=== PATIENT | male | born 1990 | race Caucasian/White ===

== ENCOUNTER → 2016-06-21 | Outpatient (CLI) | payer MEDICAID ==
[~2016-06-21] MED LIST: ALPR0.5T7 PO; BISA10SU12 PR; FENT1PAT8 TD; FLUO20CA25 PO; GABA600T2 PO; HYDR-3812 PO; MENT71OI TOP
--- OUTSIDE RECORDS SUMMARY | 2016-06-21 15:51 | XMS REPORT | Continuity of Care Document ---
Author Author [facility] Organization [facility] Address Unknown Phone Unavailable Support Name Relationship Address Phone MOLLY GARCÍA MD Caregiver [address] [facility] [place] [address] [place] [address] Insurance Providers Payer Name Policy Number Subscriber Name Relationship Self Pay Brayan Ross 18 Self / Same As Patient Advance Directives Directive Response Recorded Date/Time Advance Directives Yes 02/18/16 2:32pm Health Care Power of Family And Consumer Education Teacher Yes 02/18/16 2:32pm Resuscitation Status Full Code [...] 6.00 inches 02/18/2016 2:23pm Height (Calculated Centimeters) 167.399073 cm 02/18/2016 2:23pm Weight (Pounds) 193 pounds 02/18/2016 2:23pm Weight (Ounces) 3.0 oz 02/18/2016 2:23pm Weight (Calculated Grams) 58039.38 gm 02/18/2016 2:23pm Weight (Calculated Kilograms) 87.640752 kilograms 02/18/2016 2:23pm Calculated BMI 31.2 02/18/2016 2:23pm Results No known relevant diagnostic tests, laboratory data and/or discharge summary. Procedures No known history of procedures. Encounters Encounter Location Arrival/Admit Date Discharge/Depart Date Attending Provider Discharged Inpatient [facility] 02/18/16 12:35pm 2:13pm MOLLY GARCÍA MD Recent Diagnosis Quadriplegia, C5-C7, incomplete
[2016-06-21 16:42] LABS: BASOPHILS % (AUTO) 0 % (0-10); EOSINOPHILS # (AUTO) 0.2 10^3/uL (0.0-0.3); EOSINOPHILS % (AUTO) 3 % (0-10); LYMPHOCYTES # (AUTO) 3.1 X 10^3 (1.0-4.0); LYMPHOCYTES % (AUTO) 39 % (12-44); MEAN CORPUSCULAR HEMOGLOBIN 30 PG (25-34); MEAN CORPUSCULAR HGB CONC 35 G/DL (32-36); MEAN CORPUSCULAR VOLUME 85 FL (80-99); MEAN PLATELET VOLUME 9.8 FL (7.4-10.4); MONOCYTES # (AUTO) 0.7 X 10^3 (0.0-1.0); MONOCYTES % (AUTO) 9 % (0-12); NEUTROPHILS # (AUTO) 3.9 X 10^3 (1.8-7.8); NEUTROPHILS % (AUTO) 49 % (42-75); PLATELET COUNT 264 10^3/uL (130-400); RED BLOOD COUNT 4.85 10^6/uL (4.35-5.85); RED CELL DISTRIBUTION WIDTH 12.7 % (10.0-14.5)
[2016-06-21 17:12] LABS: ALANINE AMINOTRANSFERASE 29 U/L (0-55); ANION GAP 12 MMOL/L (5-14); ASPARTATE AMINO TRANSFERASE 22 U/L (5-34); BILIRUBIN,TOTAL 0.5 MG/DL (0.1-1.0); BLOOD UREA NITROGEN 12 MG/DL (7-18); BUN/CREATININE RATIO 20; CALCIUM 9.8 MG/DL (8.5-10.1); CARBON DIOXIDE 21 MMOL/L (21-32); CHLORIDE 104 MMOL/L (98-107); CREATININE SERUM 0.59 MG/DL (0.60-1.30); GFR ESTIMATED > 60; GLUCOSE 83 MG/DL (70-105); POTASSIUM 3.8 MMOL/L (3.6-5.0); SODIUM 137 MMOL/L (135-145); TOTAL PROTEIN 7.5 G/DL (6.4-8.2)
[2016-06-21 17:20] LABS: ERYTHROCYTE SEDIMENTATION RATE 19 MM/HR (0-15)
--- NOTE | 2016-06-21 19:06 | Diagnostic Imaging Report ---
INDICATION: Right-sided ischial ulcers. FINDINGS: No bony destruction or osteolytic process is identified. No fracture or dislocation. Lateral radiograph revealed no appreciable sacrococcygeal deformity. No bony destruction. IMPRESSION: No osseous abnormality radiographically apparent. If a more sensitive evaluation of the osseous structures to exclude infection is needed, consider MRI or bone scan, again radiographs were unremarkable at this time. Dictated by: Dictated on workstation # [id number]
== END ==
LOC: RAD 15:46
PROVIDERS: ATTEND Surgery
DX: L89.310 Pressure ulcer of right buttock, unstageable (principal); G82.53 Quadriplegia, C5-C7 complete; R15.9 Full incontinence of feces; N39.42 Incontinence without sensory awareness
CPT/HCPCS: 36415; 72170; 80053; 85025; 85652

== ENCOUNTER 2016-07-23 10:00 | Outpatient (RCR) | payer MEDICAID ==
--- OUTSIDE RECORDS SUMMARY | 2016-05-05 10:22 | XMS REPORT | Continuity of Care Document ---
Author Author [facility] Organization [facility] Address Unknown Phone Unavailable Support Name Relationship Address Phone MOLLY GARCÍA MD Caregiver [address] [place] [address] [place] [address] Insurance Providers Payer Name Policy Number Subscriber Name Relationship Self Pay Brayan Ross 18 Self / Same As Patient Advance Directives Directive Response Recorded Date/Time Advance Directives Yes 02/18/16 2:32pm Health Care Power of Advertising Dispatch Clerks Supervisor Yes 02/18/16 2:32pm Resuscitation Status Full Code 02/18/16 2:32pm Chief Complaint and Reason for Visit Chief Complaint PARAPLEGIC,SPINAL CORD Reason for Visit Quadriplegia, C5-C7, incomplete Problems Active Problems Medical Problem Onset Date Status Quadriplegia, C5-C7, incomplete Unknown Acute Medications No medication information available. Social History Social History Problem Response Recorded Date/Time Recent Foreign Travel No 02/18/2016 2:06pm Recent Infectious Disease Exposure No 02/18/2016 2:06pm Hospital Discharge Instructions No hospital discharge instructions. Plan of Care Discharge Date 02/18/16 2:13pm Disposition 62 DISC/XFER TO IRF Prescriptions See Medication Section Functional Status No functional status results. Allergies, Adverse Reactions, Alerts No known allergies. Immunizations No immunization records. Vital Signs Acute Vital Signs Vital Response Date/Time Height (Feet) 5 feet 02/18/2016 2:23pm Height (Inches) 6.00 inches 02/18/2016 2:23pm Height (Calculated Centimeters) 167.664375 cm 02/18/2016 2:23pm Weight (Pounds) 193 pounds 02/18/2016 2:23pm Weight (Ounces) 3.0 oz 02/18/2016 2:23pm Weight (Calculated Grams) 12331.38 gm 02/18/2016 2:23pm Weight (Calculated Kilograms) 87.436191 kilograms 02/18/2016 2:23pm Calculated BMI 31.2 02/18/2016 2:23pm Results No known relevant diagnostic tests, laboratory data and/or discharge summary. Procedures No known history of procedures. Encounters Encounter Location Arrival/Admit Date Discharge/Depart Date Attending Provider Discharged Inpatient [facility] 02/18/16 12:35pm 2:13pm MOLLY GARCÍA MD Recent Diagnosis Quadriplegia, C5-C7, incomplete
== END 2016-08-03 | disposition home or self-care (01) ==
PROVIDERS: ATTEND Nurse Practitioner Family
DX: M54.2 Cervicalgia (principal); G82.21 Paraplegia, complete

== ENCOUNTER → 2016-07-23 | Outpatient (CLI) | payer MEDICAID ==
[~2016-07-23] VITALS: Ht 167.6 cm; Wt 89.7 kg
--- NOTE | 2016-07-23 13:53 | Diagnostic Imaging Report ---
INDICATION: PICC line placement. FINDINGS: A single view of the chest demonstrates a right entering PICC line with the tip of the catheter in the azygos vein. Recommend withdrawing 1.5 cm. No pneumothorax. Scarring is seen in the bases. IMPRESSION: The PICC line tip is in the azygos. The report was called to Stefanie. Dictated by: Dictated on workstation # [id number]
[2016-07-23 14:49] VITALS: BP 0/0
== END ==
LOC: SDC 12:23
PROVIDERS: ATTEND Surgery
DX: Z45.2 Encounter for adjustment and management of vascular access device (principal)
CPT/HCPCS: 36569; 71010; 76937

== ENCOUNTER → 2016-07-29 | Outpatient (CLI) | payer MEDICAID ==
[~2016-07-29] VITALS: Ht 167.6 cm; Wt 89.7 kg
[~2016-07-29] MED LIST changes: +GENTAMICIN IV SCH; +NS IV SCH
[2016-07-29 11:40] VITALS: BP 121/61
== END ==
LOC: SDC 09:13
PROVIDERS: ATTEND Surgery
DX: L89.314 Pressure ulcer of right buttock, stage 4 (principal); G82.53 Quadriplegia, C5-C7 complete; R15.9 Full incontinence of feces; N39.42 Incontinence without sensory awareness
CPT/HCPCS: 96365

== ENCOUNTER → 2016-08-09 | Outpatient (CLI) | payer MEDICAID ==
[~2016-08-09] MED LIST changes: -GENTAMICIN IV SCH; -NS IV SCH
== END ==
LOC: HH 14:19
PROVIDERS: ATTEND Surgery
DX: L89.314 Pressure ulcer of right buttock, stage 4 (principal)
CPT/HCPCS: 80170

== ENCOUNTER 2016-09-17 11:23 | Outpatient (RCR) | payer MEDICAID | END 2016-09-19 | disposition home or self-care (01) | LOC: WOUNDCARE 11:23 | PROVIDERS: ATTEND Surgery | DX: L89.314 Pressure ulcer of right buttock, stage 4 (principal); G82.53 Quadriplegia, C5-C7 complete; R15.9 Full incontinence of feces; N39.42 Incontinence without sensory awareness | CPT/HCPCS: 11042; 11043; 87070; 87075; 87077; 87186; 87205; 97605 ==

== ENCOUNTER 2016-11-10 14:30 | Outpatient (RCR) | payer MEDICAID ==
[2016-09-24 12:45] VITALS: BP 130/96
[~2016-11-10] VITALS: Ht 167.6 cm; Wt 89.7 kg
== END 2016-11-22 16:00 | disposition home or self-care (01) ==
LOC: WOUNDCARE 14:30
PROVIDERS: ATTEND Surgery
DX: L89.310 Pressure ulcer of right buttock, unstageable (principal); G82.53 Quadriplegia, C5-C7 complete; R15.9 Full incontinence of feces; N39.42 Incontinence without sensory awareness
CPT/HCPCS: 11042; 87070; 87075; 87077; 87186; 87205

== ENCOUNTER → 2016-11-26 | Outpatient (CLI) | payer MEDICAID | LOC: WOUNDCARE 11:23 | PROVIDERS: ATTEND Surgery | DX: L89.314 Pressure ulcer of right buttock, stage 4 (principal); G82.53 Quadriplegia, C5-C7 complete; R15.9 Full incontinence of feces; N39.42 Incontinence without sensory awareness | CPT/HCPCS: 11042 ==

== ENCOUNTER → 2016-12-22 | Outpatient (CLI) | payer MEDICAID | LOC: WOUNDCARE 14:49 | PROVIDERS: ATTEND Surgery | DX: L89.314 Pressure ulcer of right buttock, stage 4 (principal); G82.53 Quadriplegia, C5-C7 complete; R15.9 Full incontinence of feces; N39.42 Incontinence without sensory awareness | CPT/HCPCS: 11042; 97605 ==

== ENCOUNTER → 2016-12-31 | Outpatient (CLI) | payer MEDICAID | LOC: WOUNDCARE 11:23 | PROVIDERS: ATTEND Surgery | DX: L89.314 Pressure ulcer of right buttock, stage 4 (principal); G82.53 Quadriplegia, C5-C7 complete; R15.9 Full incontinence of feces; N39.42 Incontinence without sensory awareness | CPT/HCPCS: 11042 ==

== ENCOUNTER → 2017-01-06 | Outpatient (RCR) | payer MEDICAID | END | disposition home or self-care (01) | PROVIDERS: ATTEND Family Medicine | DX: G82.54 Quadriplegia, C5-C7 incomplete (principal); M54.2 Cervicalgia ==

== ENCOUNTER → 2017-01-07 | Outpatient (CLI) | payer MEDICAID | LOC: WOUNDCARE 08:50 | PROVIDERS: ATTEND Surgery | DX: L89.314 Pressure ulcer of right buttock, stage 4 (principal); G82.53 Quadriplegia, C5-C7 complete; R15.9 Full incontinence of feces; N39.42 Incontinence without sensory awareness | CPT/HCPCS: 11042; 87070; 87075; 87077; 87186; 87205; 97605 ==

== ENCOUNTER → 2017-01-12 | Outpatient (CLI) | payer MEDICAID | LOC: WOUNDCARE 10:50 | PROVIDERS: ATTEND Surgery | DX: L89.314 Pressure ulcer of right buttock, stage 4 (principal); G82.53 Quadriplegia, C5-C7 complete; R15.9 Full incontinence of feces | CPT/HCPCS: 11042; 97605 ==

== ENCOUNTER 2017-01-20 15:36 | Outpatient (RCR) | payer MEDICAID | END 2017-01-22 | disposition home or self-care (01) | PROVIDERS: ATTEND Family Medicine | DX: G82.54 Quadriplegia, C5-C7 incomplete (principal); M54.2 Cervicalgia ==

== ENCOUNTER → 2017-01-21 | Outpatient (CLI) | payer MEDICAID | LOC: WOUNDCARE 11:25 | PROVIDERS: ATTEND Surgery | DX: L89.314 Pressure ulcer of right buttock, stage 4 (principal); G82.53 Quadriplegia, C5-C7 complete; R15.9 Full incontinence of feces | CPT/HCPCS: 11042 ==

== ENCOUNTER → 2017-01-28 | Outpatient (CLI) | payer MEDICAID | LOC: WOUNDCARE 11:28 | PROVIDERS: ATTEND Surgery | DX: L89.314 Pressure ulcer of right buttock, stage 4 (principal); G82.53 Quadriplegia, C5-C7 complete | CPT/HCPCS: 11042; 97605 ==

== ENCOUNTER → 2017-02-11 | Outpatient (CLI) | payer MEDICAID | LOC: WOUNDCARE 10:54 | PROVIDERS: ATTEND Surgery | DX: L89.314 Pressure ulcer of right buttock, stage 4 (principal); G82.53 Quadriplegia, C5-C7 complete | CPT/HCPCS: 11042 ==

== ENCOUNTER → 2017-02-18 | Outpatient (CLI) | payer MEDICAID | LOC: WOUNDCARE 11:16 | PROVIDERS: ATTEND Surgery | DX: L89.314 Pressure ulcer of right buttock, stage 4 (principal); G82.53 Quadriplegia, C5-C7 complete | CPT/HCPCS: 11042; 87070; 87075; 87077; 87186; 87205 ==

== ENCOUNTER → 2017-02-23 | Outpatient (CLI) | payer MEDICAID | LOC: WOUNDCARE 11:02 | PROVIDERS: ATTEND Surgery | DX: L89.314 Pressure ulcer of right buttock, stage 4 (principal); L92.8 Other granulomatous disorders of the skin and subcutaneous tissue; G82.53 Quadriplegia, C5-C7 complete | CPT/HCPCS: 17250 ==

== ENCOUNTER → 2017-03-15 | Outpatient (CLI) | payer MEDICAID | LOC: WOUNDCARE 13:42 | PROVIDERS: ATTEND Surgery | DX: L89.314 Pressure ulcer of right buttock, stage 4 (principal); L92.8 Other granulomatous disorders of the skin and subcutaneous tissue; G82.53 Quadriplegia, C5-C7 complete | CPT/HCPCS: 99212 ==

== ENCOUNTER 2017-04-22 11:44 | Outpatient (RCR) | payer MEDICAID ==
[~2017-04-22 11:44] MED LIST changes: +ACHD5005 PO; -HYDR-3812 PO
== END 2017-04-28 | disposition home or self-care (01) ==
PROVIDERS: ATTEND Family Medicine
DX: G82.54 Quadriplegia, C5-C7 incomplete (principal); M54.2 Cervicalgia

== ENCOUNTER 2017-06-08 13:53 | Outpatient (RCR) | payer MEDICAID | END 2017-08-11 13:44 | disposition home or self-care (01) | PROVIDERS: ATTEND Family Medicine | DX: G82.54 Quadriplegia, C5-C7 incomplete (principal); M54.2 Cervicalgia ==

== ENCOUNTER 2022-04-16 20:49 | Emergency (ER) | payer MEDICARE, MEDICAID ==
[~2022-04-16 20:49] MED LIST changes: -FLUO20CA25 PO; +FLUO20CA48 PO; -GABA600T2 PO; +GBPN600T PO
[2022-04-16] MEDS ORDERED: HYDROmorphone 2 MG/ML VIAL (DILAUDID) IV ONE ×2 (21:15→21:45)
[2022-04-16] MEDS ORDERED: LACTATED RINGERS 1,000 ML IV SCH (21:15)
[2022-04-16] MEDS ORDERED: KETOROLAC 30 MG/ML VIAL IVP ONE (21:15)
[2022-04-16 21:23] LABS: BILIRUBIN,URINE NEGATIVE (NEGATIVE); CLARITY,URINE CLEAR; COLOR,URINE YELLOW; GLUCOSE, URINE (UA) NEGATIVE (NEGATIVE); KETONES,URINE NEGATIVE (NEGATIVE); LEUKOCYTE ESTERASE ,URINE 3+ (NEGATIVE); NITRITE,URINE NEGATIVE (NEGATIVE); PH,URINE 5.5 (5-9); PROTEIN,URINE NEGATIVE (NEGATIVE)
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
[2022-04-16 21:25] LABS: BASOPHILS % (AUTO) 0 % (0-10); EOSINOPHILS # (AUTO) 0.2 10^3/uL (0.0-0.3); EOSINOPHILS % (AUTO) 1 % (0-10); HEMATOCRIT 43 % (40-54); HEMOGLOBIN 14.8 g/dL (13.3-17.7); LYMPHOCYTES # (AUTO) 2.9 10^3/uL (1.0-4.0); LYMPHOCYTES % (AUTO) 22 % (12-44); MEAN CORPUSCULAR HEMOGLOBIN 30 pg (25-34); MEAN CORPUSCULAR HGB CONC 35 g/dL (32-36); MEAN CORPUSCULAR VOLUME 88 fL (80-99); MEAN PLATELET VOLUME 10.4 fL (9.0-12.2); MONOCYTES # (AUTO) 1.2 10^3/uL (0.0-1.0); MONOCYTES % (AUTO) 9 % (0-12); NEUTROPHILS # (AUTO) 8.8 10^3/uL (1.8-7.8); NEUTROPHILS % (AUTO) 67 % (42-75); PLATELET COUNT 271 10^3/uL (130-400); WHITE BLOOD COUNT 13.1 10^3/uL (4.3-11.0)
[2022-04-16 21:37] LABS: BACTERIA,URINE MODERATE /HPF; SQUAMOUS EPITHELIAL CELL,UR RARE /HPF
[2022-04-16 21:45] LABS: ALBUMIN 4.2 GM/DL (3.2-4.5); BILIRUBIN,TOTAL 0.7 MG/DL (0.1-1.0); CALCIUM 9.8 MG/DL (8.5-10.1); CREATININE SERUM 0.75 MG/DL (0.60-1.30); POTASSIUM 3.5 MMOL/L (3.6-5.0); TOTAL PROTEIN 7.7 GM/DL (6.4-8.2)
--- NOTE | 2022-04-16 21:50 | Diagnostic Imaging Report ---
EXAMINATION: CT abdomen and pelvis without contrast. TECHNIQUE: Multiple contiguous axial images were obtained through the abdomen and pelvis without the use of intravenous contrast. All CT scans use one or more of the following dose optimizing techniques: automated exposure control, MA and/or KvP adjustment based on patient size and exam type or iterative reconstruction. HISTORY: Left flank pain COMPARISON: None available. FINDINGS: Lung bases: Bibasilar dependent atelectasis. Solid organs: There is diffuse hypoattenuation of the liver which can be seen with hepatic steatosis. There is layering sludge or stones within the gallbladder. There is no biliary ductal dilation. Pancreas is normal. Spleen is normal. Adrenal glands are normal. There is a nonobstructing 0.2 cm left renal calculus. No hydronephrosis. Bowel: The stomach and small bowel are normal without obstruction. The colon and appendix are normal. Peritoneum: There is no intraperitoneal free fluid or free air. No suspicious lymphadenopathy. Vasculature: Normal without aneurysm. Musculoskeletal: No suspicious osseous lesion or compression fracture. Pelvis: Surgical changes from prior TURP. There is bladder wall thickening and trabeculation likely secondary to chronic bladder outlet obstruction. IMPRESSION: 1. No acute abnormality in the abdomen or pelvis. 2. Nonobstructing 0.2 cm left renal calculus without hydronephrosis. 3. Hepatic steatosis. Dictated by: Dictated on workstation # [id number]
[2022-04-16] MEDS ORDERED: KETAMINE 50 MG/5 ML SYRINGE IV ONE (22:15)
[2022-04-16] MEDS ORDERED: CIPR500T5 PO (22:24)
[2022-04-16] MEDS ORDERED: PRD20T PO (22:24)
[2022-04-16] MEDS ORDERED: OXYC1TAB87 PO (22:24)
[2022-04-16 22:28] VITALS: BP 91/55
== END 2022-04-16 23:00 | disposition home or self-care (01) ==
LOC: EDUNIT# 20:49 → ER 20:51
DX: N39.0 Urinary tract infection, site not specified (principal); M54.16 Radiculopathy, lumbar region; G82.54 Quadriplegia, C5-C7 incomplete
CPT/HCPCS: 36415; 74176; 80053; 81000; 85025; 87077; 87088; 87186

== ENCOUNTER 2022-05-04 11:18 | Emergency (ER) | payer MEDICARE, MEDICAID ==
[~2022-05-04] VITALS: Ht 167.7 cm; Wt 99.7 kg
[~2022-05-04 11:18] MED LIST changes: +CIPR500T5 PO; +OXYC1TAB87 PO; +PRD20T PO
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
[2022-05-04 13:27] LABS: BASOPHILS % (AUTO) 1 % (0-10); EOSINOPHILS # (AUTO) 0.1 10^3/uL (0.0-0.3); EOSINOPHILS % (AUTO) 2 % (0-10); HEMATOCRIT 44 % (40-54); HEMOGLOBIN 15.1 g/dL (13.3-17.7); LYMPHOCYTES # (AUTO) 2.1 10^3/uL (1.0-4.0); LYMPHOCYTES % (AUTO) 31 % (12-44); MEAN CORPUSCULAR HEMOGLOBIN 30 pg (25-34); MEAN CORPUSCULAR HGB CONC 35 g/dL (32-36); MEAN CORPUSCULAR VOLUME 87 fL (80-99); MEAN PLATELET VOLUME 10.1 fL (9.0-12.2); MONOCYTES # (AUTO) 0.6 10^3/uL (0.0-1.0); MONOCYTES % (AUTO) 9 % (0-12); NEUTROPHILS # (AUTO) 3.8 10^3/uL (1.8-7.8); NEUTROPHILS % (AUTO) 57 % (42-75); PLATELET COUNT 290 10^3/uL (130-400); WHITE BLOOD COUNT 6.6 10^3/uL (4.3-11.0)
[2022-05-04 13:44] LABS: ALBUMIN 4.4 GM/DL (3.2-4.5); BILIRUBIN,TOTAL 1.2 MG/DL (0.1-1.0); CALCIUM 10.4 MG/DL (8.5-10.1); CREATININE SERUM 0.7 MG/DL (0.60-1.30); POTASSIUM 3.8 MMOL/L (3.6-5.0); TOTAL PROTEIN 7.8 GM/DL (6.4-8.2)
[2022-05-04] MEDS ORDERED: LEMB5TAB PO (14:14)
[2022-05-04] MEDS ORDERED: LORazepam INJ 2 MG/ML (ATIVAN) VIAL IVP ONE (14:15)
[2022-05-04 14:51] VITALS: BP 122/80
== END 2022-05-04 14:51 | disposition home or self-care (01) ==
LOC: EDUNIT# 11:18 → ER 11:20
DX: G47.00 Insomnia, unspecified (principal); M62.838 Other muscle spasm
CPT/HCPCS: 36415; 80053; 82550; 85025; 99281